=== PATIENT | male | born 1995 | race American Indian/Alaskan Native ===

== ENCOUNTER 2017-05-24 22:50 | Emergency (ER) | payer SELFPAY ==
[2017-05-24 23:04] VITALS: BP 115/73; PULSE 78; RESP 20; TEMP 98.3; O2SAT 99
--- NOTE | 2017-05-24 23:08 | C.PDOC ---
History Of Present Illness 22 yo male come in for evaluation of Right knee pain developed for last 3 days. Pt sts, " was getting out of car too fast and noted something is wrong with my Right knee". Pt sts, pain gradually worse, noted some swelling to knee. Pt sts, pain is localized and worse with weight bearing and more with knee bending. Otherwise, pt denies known direct trauma or injury, deformity, skin changes, denies weakness, sensory or vascular deficits to Right leg. Ambulate to ED for evaluation, not in any apparent distress. Time Seen by Provider: 05/24/17 23:03 Chief Complaint (Nursing): Lower Extremity Problem/Injury History Per: Patient Onset/Duration Of Symptoms: Gradual Current Symptoms Are (Timing): Still Present Past Medical History Reviewed: Historical Data, Nursing Documentation, Vital Signs Vital Signs: Last Vital Signs Temp 98.3 F 05/24/17 23:00 Pulse 78 05/24/17 23:00 Resp 20 05/24/17 23:00 BP 115/73 05/24/17 23:00 Pulse Ox 99 05/24/17 23:32 - Medical History PMH: No Chronic Diseases Family History: States: No Known Family Hx - Social History Hx Alcohol Use: Yes Hx Substance Use: No Review Of Systems Except As Marked, All Systems Reviewed And Found Negative. Constitutional: Negative for: Fever, Chills ENT: Negative for: Throat Pain Musculoskeletal: Positive for: Other (Right knee pain) Skin: Negative for: Rash, Bruising Neurological: Negative for: Weakness, Numbness Physical Exam - Physical Exam Appears: Well, Non-toxic, No Acute Distress Skin: Normal Color, Warm, No Rash, No Ecchymosis Extremity: Normal ROM (mild discomfort on Right knee flexion due to pain.), Tenderness (mod tenderness over medial/superior aspect Right knee with mild nos edema. Mild warm to touch note. No deformity.), No Pedal Edema, No Calf Tenderness, Capillary Refill (less than 2sec to Right foot), No Deformity Neurological/Psych: Oriented x3, Normal Speech, Normal Motor, Normal Sensation, Normal Reflexes ED Course And Treatment O2 Sat by Pulse Oximetry: 99 - Other Rad Right knee X-Ray: Interpreted by Me, Viewed By Me Interpretation: (-) acute fx or dislocation Progress Note: On re-eavluation, pt is afebrile, hemodynamicaly stable. Non- toxic. Right knee; exam c/w sprain. NO defomrity, no neurovascular deficits. Xray review and no acute abnoramlities noted. KNee immobilizer applied. Pt advised and ref. to F/U with Ortho in 1-2 days for re-eavl and further tx.,. Return to Ed if any worsening or new changes. Disposition Counseled Patient/Family Regarding: Studies Performed, Diagnosis, Need For Followup, Rx Given - Disposition Referrals: Edilberto Laguna MD [Staff Provider] - Disposition: HOME/ ROUTINE Disposition Time: 23:56 Condition: STABLE Additional Instructions: Knee immobilizer for 1 week Avoid prolong walking Leg elevation Take medication s prescribed Follow up with Orthopedist in 2-3 days for re-evaluation/MRI of knee to review ligament injury. Return to ED if any worsening or new changes. Prescriptions: Ibuprofen [Motrin Tab] 600 mg PO Q6 #20 tab traMADol [Ultram] 50 mg PO TID #7 tab Instructions: Knee Sprain (ED) Forms: [employer] (E[place]ian) - Clinical Impression Clinical Impression: Knee sprain
--- NOTE | 2017-05-25 11:07 | RAD ---
PROCEDURE: Right Knee Radiographs. HISTORY: COMPARISON: None available. FINDINGS: BONES: No acute displaced fracture. JOINTS: No dislocation. JOINT EFFUSION: Small suprapatellar joint effusion. OTHER FINDINGS: None. IMPRESSION: Small suprapatellar joint effusion. No acute displaced fracture or dislocation identified. If symptoms persist, or if there is continued clinical concern, x-ray follow-up in 7-10 days should be considered. Study has been marked for PA review.
== END 2017-05-25 00:22 | disposition home or self-care (01) ==
LOC: C.ER 22:50
DX: S83.91XA Sprain of unspecified site of right knee, initial encounter (principal); X58.XXXA Exposure to other specified factors, initial encounter